=== PATIENT | female | born 1980 | race African-American/Black ===

== ENCOUNTER 2018-01-04 12:17 | Inpatient (IN) | payer OTHER ==
[2018-01-04] VITALS (86 sets, daily range): BP systolic 123–143; BP diastolic 70–88; PULSE 79–153; TEMP 98.9; O2SAT 98–100
[~2018-01-04] VITALS: Ht 172.7 cm; Wt 83.4 kg
[2018-01-04] MEDS ORDERED: RT SALINE 0.9% N3 ML IH (13:29)
[2018-01-04] MEDS ORDERED: MONONESSA 35 MC1 TA1 PO (13:30)
[2018-01-04] MEDS ORDERED: ZANTAC 150MG T150 MG PO (13:30)
[2018-01-04] MEDS ORDERED: PROAIR HFA0.09 MG/AC IH (13:31)
[2018-01-04] MEDS ORDERED: ATROVENT NASAL15 ML NS (13:31)
[2018-01-04] MEDS ORDERED: SINGULAIR 110 MG/TAB PO (13:32)
[2018-01-04] MEDS ORDERED: 00186-0372-20 IH (13:32)
[2018-01-04] MEDS ORDERED: ALLEGRA 180MG180 MG PO (13:33)
[2018-01-04] MEDS ORDERED: FLONASE NASAL S16 GM NS (13:42)
[2018-01-04 14:20] LABS: ARTERIAL BLD GAS O2 SATURATION 98.5 % (92-100); ARTERIAL BLD GAS TCO2 CT 13.6; ARTERIAL BLOOD GAS BASE EXCESS -1.4 (-2-2); ARTERIAL BLOOD GAS HCO3 13.3 meq/L (22-26)
[2018-01-04 14:21] LABS: ARTERIAL BLOOD GAS PCO2 10.4 mmHg (35-45); ARTERIAL BLOOD GAS PO2 121.8 mmHg (80-100); ARTERIAL BLOOD GAS pH 7.73 (7.35-7.45)
[2018-01-04 16:39] LABS: ARTERIAL BLD GAS O2 SATURATION 98.8 % (92-100); ARTERIAL BLD GAS TCO2 CT 14.1; ARTERIAL BLOOD GAS BASE EXCESS -3.7 (-2-2); ARTERIAL BLOOD GAS HCO3 13.7 meq/L (22-26)
[2018-01-04 16:42] LABS: ARTERIAL BLOOD GAS PCO2 13.4 mmHg (35-45); ARTERIAL BLOOD GAS pH 7.63 (7.35-7.45)
[2018-01-04 21:28] LABS: ARTERIAL BLD GAS O2 SATURATION 97.9 % (92-100); ARTERIAL BLD GAS TCO2 CT 16.6; ARTERIAL BLOOD GAS BASE EXCESS -6.3 (-2-2); ARTERIAL BLOOD GAS HCO3 15.9 meq/L (22-26); ARTERIAL BLOOD GAS PCO2 24.2 mmHg (35-45); ARTERIAL BLOOD GAS PO2 108.9 mmHg (80-100); ARTERIAL BLOOD GAS pH 7.44 (7.35-7.45)
[2018-01-05] VITALS: BP 143/83; PULSE 105; TEMP 97.8
[2018-01-05 04:00] VITALS: BP 129/78; PULSE 108; TEMP 98.1
[2018-01-05 05:55] LABS: BASO % 0.1 % (0.0-2.0); GRAN # 6.7 (1.4-6.5); GRAN % 88.8 % (42.2-75.2); LYMPH # 0.7 (1.2-3.4); LYMPH % 9.4 % (20.0-51.0); MEAN CELL VOLUME 87 fl (80.0-100.0); MEAN CORPUSCULAR HEMOGLOBIN 29 pg (27.0-31.0); MEAN CORPUSCULAR HGB CONC 33 g/dl (33.0-37.0); MEAN PLATELET VOLUME 9.3 fl (7.4-10.4); MONO # 0.1 (0.1-0.6); MONO % 1.3 % (1.7-9.3); PLATELET COUNT 312 K/mm3 (130-400); RED BLOOD COUNT 4.49 M/mm3 (4.10-5.30); REDCELL DISTRIBUTION WIDTH-CV 14.2 % (11.5-14.5)
[2018-01-05 06:10] LABS: CALCIUM 8.8 mg/dL (8.4-10.2); CREATININE, serum 0.65 mg/dL (0.52-1.25); POTASSIUM 3.2 mmol/L (3.4-5.0)
[2018-01-05 06:39] LABS: ARTERIAL BLD GAS O2 SATURATION 86.8 % (92-100); ARTERIAL BLD GAS TCO2 CT 20.3; ARTERIAL BLOOD GAS BASE EXCESS -4.5 (-2-2); ARTERIAL BLOOD GAS HCO3 19.4 meq/L (22-26); ARTERIAL BLOOD GAS PCO2 32.4 mmHg (35-45); ARTERIAL BLOOD GAS PO2 50.9 mmHg (80-100); ARTERIAL BLOOD GAS pH 7.39 (7.35-7.45)
[2018-01-05 08:00] VITALS: BP 138/84; PULSE 127; TEMP 98.9
[2018-01-05 11:13] VITALS: BP 119/87; PULSE 115; TEMP 98.7
[2018-01-05 16:21] VITALS: BP 120/74; PULSE 95; TEMP 98.6
[2018-01-05 20:08] VITALS: BP 112/82; PULSE 84; TEMP 98.5
[2018-01-06 00:08] VITALS: BP 100/74; PULSE 77; TEMP 98.4
[2018-01-06 04:57] VITALS: BP 111/74; PULSE 85; TEMP 98.5
[2018-01-06 07:38] VITALS: BP 122/81; PULSE 97; TEMP 99
[2018-01-06 08:24] LABS: HEMATOCRIT 38.1 % (37.0-47.0); MEAN CELL VOLUME 89 fl (80.0-100.0); MEAN CORPUSCULAR HEMOGLOBIN 30 pg (27.0-31.0); MEAN CORPUSCULAR HGB CONC 34 g/dl (33.0-37.0); MEAN PLATELET VOLUME 9.3 fl (7.4-10.4); PLATELET COUNT 275 K/mm3 (130-400); RED BLOOD COUNT 4.28 M/mm3 (4.10-5.30); REDCELL DISTRIBUTION WIDTH-CV 14.7 % (11.5-14.5)
[2018-01-06 08:35] LABS: CALCIUM 8.9 mg/dL (8.4-10.2); CREATININE, serum 0.73 mg/dL (0.52-1.25); POTASSIUM 4.2 mmol/L (3.4-5.0)
[2018-01-06 08:36] LABS: BAND 8 % (0-10); LYMPHOCYTE 1 % (20.0-51.0); NEUTROPHILS 91 % (42.0-75.2); PLATELET ESTIMATE NORMAL (NORMAL)
[2018-01-06] MEDS ORDERED: 00186-0370-20 IH (10:41)
[2018-01-06] MEDS ORDERED: IPRATROPIUM BROM3 M1 IH (10:43)
[2018-01-06] MEDS ORDERED: PROTONIX 40MG T40 MG PO (10:46)
[2018-01-06] MEDS ORDERED: PREDNISONE20 MG PO (10:48)
[2018-01-06 11:06] VITALS: BP 118/77; PULSE 78; TEMP 99.5
== END 2018-01-06 13:44 | disposition home or self-care (01) | DRG 202 ==
LOC: MEDICAL 12:17 → ICU 14:00 → MEDICAL 01-05 16:20
PROVIDERS: Family Medicine; Internal Medicine; Internal Medicine Pulmonary Disease; Nurse Practitioner Family
PROC: 02HV33Z Insertion of Infusion Device into Superior Vena Cava, Percutaneous Approach (ICD-10-PCS; principal; 2018-01-04)
DX: J45.32 Mild persistent asthma with status asthmaticus (principal); E87.3 Alkalosis; E87.6 Hypokalemia; R00.0 Tachycardia, unspecified; T44.7X5A Adverse effect of beta-adrenoreceptor antagonists, initial encounter
CPT/HCPCS: 99223-AI; 99233-AI; C1751; J1650; J1956; J2920; J2930; J3480

== ENCOUNTER 2018-10-23 18:48 | Inpatient (IN) | payer OTHER ==
[~2018-10-23] VITALS: Ht 172.7 cm; Wt 81.4 kg
[2018-10-23] VITALS (38 sets, daily range): BP systolic 140; BP diastolic 93; PULSE 141; TEMP 98.6; O2SAT 100
[~2018-10-23 18:48] MED LIST: 00186-0370-20 IH; 00186-0372-20 IH; ALLEGRA 180MG180 MG PO; ATROVENT NASAL15 ML NS; FLONASE NASAL S16 GM NS; IPRATROPIUM BROM3 M1 IH; MONONESSA 35 MC1 TA1 PO; PREDNISONE20 MG PO; PROAIR HFA0.09 MG/AC IH; PROTONIX 40MG T40 MG PO; RT SALINE 0.9% N3 ML IH; SINGULAIR 110 MG/TAB PO; ZANTAC 150MG T150 MG PO
[2018-10-23 22:15] LABS: ARTERIAL BLD GAS O2 SATURATION 86.8 % (92-100); ARTERIAL BLD GAS TCO2 CT 13.8; ARTERIAL BLOOD GAS HCO3 13.4 meq/L (22-26); ARTERIAL BLOOD GAS pH 7.58 (7.35-7.45)
[2018-10-23 22:16] LABS: ARTERIAL BLOOD GAS PCO2 14.5 mmHg (35-45); ARTERIAL BLOOD GAS PO2 43.4 mmHg (80-100)
[2018-10-23 22:19] LABS: ALBUMIN 4.7 gm/dL (3.5-5.0); BILIRUBIN,TOTAL 0.4 mg/dL (0.0-1.0); CALCIUM 9.9 mg/dL (8.4-10.2); CREATININE, serum 0.88 (0.52-1.25); POTASSIUM 3.1 mmol/L (3.4-5.0); TOTAL PROTEIN 8.3 gm/dL (6.4-8.2)
[2018-10-23 22:22] LABS: BASO % 0.4 % (0.0-2.0); EOS % 0.5 % (0-4.0); GRAN # 5.9 (1.4-6.5); GRAN % 75.3 % (42.2-75.2); HEMOGLOBIN 13.7 g/dl (12.5-16.0); LYMPH # 1.5 (1.2-3.4); LYMPH % 19.6 % (20.0-51.0); MEAN CELL VOLUME 88 fl (80.0-100.0); MEAN CORPUSCULAR HEMOGLOBIN 29 pg (27.0-31.0); MEAN CORPUSCULAR HGB CONC 33 g/dl (33.0-37.0); MEAN PLATELET VOLUME 9.7 fl (7.4-10.4); MONO # 0.3 (0.1-0.6); MONO % 3.8 % (1.7-9.3); PLATELET COUNT 345 K/mm3 (130-400); RED BLOOD COUNT 4.67 M/mm3 (4.10-5.30); REDCELL DISTRIBUTION WIDTH-CV 13.5 % (11.5-14.5)
--- NOTE | 2018-10-23 23:11 | NUR ---
received report from cortez GRIGGS RN.
[2018-10-24] VITALS (1062 sets, daily range): BP systolic 107–132; BP diastolic 66–84; PULSE 91–119; TEMP 98–99.1; O2SAT 69–100
[2018-10-24] MEDS ORDERED: VALU-DRYL ALLER25 MG PO (01:15)
[2018-10-24] MEDS ORDERED: ZYRTEC ALLERGY10 MG PO (01:22)
[2018-10-24 05:31] LABS: HEMOGLOBIN 12.8 g/dl (12.5-16.0); MEAN CELL VOLUME 91 fl (80.0-100.0); MEAN CORPUSCULAR HEMOGLOBIN 30 pg (27.0-31.0); MEAN CORPUSCULAR HGB CONC 33 g/dl (33.0-37.0); MEAN PLATELET VOLUME 9.4 fl (7.4-10.4); PLATELET COUNT 298 K/mm3 (130-400); RED BLOOD COUNT 4.31 M/mm3 (4.10-5.30); REDCELL DISTRIBUTION WIDTH-CV 13.8 % (11.5-14.5)
[2018-10-24 05:39] LABS: CREATININE, serum 0.7 (0.52-1.25); POTASSIUM 4.3 mmol/L (3.4-5.0)
[2018-10-24 06:19] LABS: BAND 5 % (0-10); LYMPHOCYTE 2 % (20.0-51.0); NEUTROPHILS 93 % (42.0-75.2); PLATELET ESTIMATE NORMAL (NORMAL)
--- NOTE | 2018-10-24 07:27 | NUR ---
gave report to chivo crawley.
--- NOTE | 2018-10-24 07:35 | NUR ---
Bedside report received from STU Carlson.
[2018-10-24 08:02] LABS: ARTERIAL BLOOD GAS BASE EXCESS -6.4 (-2-2); ARTERIAL BLOOD GAS HCO3 16.2 meq/L (22-26); ARTERIAL BLOOD GAS PCO2 25.1 mmHg (35-45); ARTERIAL BLOOD GAS PO2 118.7 mmHg (80-100); ARTERIAL BLOOD GAS pH 7.43 (7.35-7.45)
--- NOTE | 2018-10-24 11:58 | NUR ---
Patient visiting with family at this time.
--- NOTE | 2018-10-24 14:45 | NUR ---
Report given to STU Blanchard.
--- NOTE | 2018-10-24 19:09 | NUR ---
Report given to Akua PERAZA and care resumed.
--- NOTE | 2018-10-24 19:10 | NUR ---
Bedside report received from STU Blanchard.
--- NOTE | 2018-10-24 20:00 | NUR ---
Patient awake at this time sitting in bed reading her book. Patient is alert and oriented, no signs of distress. Patient has complaints of intermittent pain rated 4/10 under her ribs from coughing. Patient would like something for the pain, will contact hospitalist. Assessment complete. Patients lungs are clear in all lópez bilaterally. HR and rhythm are regular with normal S1 and S2, patient is intermittently tachycardic, especially when moving around the room. Bowel sounds are active x4. Patient is totally independent in the room. Provided bath wipes and fresh gown per her request. Patient has no further needs at this time. Will continue to monitor. Call light within reach.
[2018-10-25] VITALS (411 sets, daily range): BP systolic 128–138; BP diastolic 79–91; PULSE 78–99; TEMP 98.3–99; O2SAT 45–100
--- NOTE | 2018-10-25 | NUR ---
Patient sleeping at this time. Patient awakens to voice and tactile stimulation. Vitals obtained and WNL. Patient has no complaints of pain, she states "that tramadol knocked me out". Patient has no further needs. Will continue to monitor. Call light within reach.
--- NOTE | 2018-10-25 04:00 | NUR ---
Patient awake and sitting up in the recliner on her computer. Vitals obtained and WNL. No signs of distress. Patient does have complaints of 4/10 pain under her ribs again and is requesting medication for it. To be provided. No further needs. Will continue to monitor. Call light within reach.
[2018-10-25 05:11] LABS: HEMATOCRIT 40.6 % (37.0-47.0); HEMOGLOBIN 13.5 g/dl (12.5-16.0); MEAN CELL VOLUME 89 fl (80.0-100.0); MEAN CORPUSCULAR HEMOGLOBIN 30 pg (27.0-31.0); MEAN CORPUSCULAR HGB CONC 33 g/dl (33.0-37.0); MEAN PLATELET VOLUME 9.4 fl (7.4-10.4); PLATELET COUNT 314 K/mm3 (130-400); RED BLOOD COUNT 4.57 M/mm3 (4.10-5.30); REDCELL DISTRIBUTION WIDTH-CV 14.3 % (11.5-14.5)
[2018-10-25 05:23] LABS: ALBUMIN 4.5 gm/dL (3.5-5.0); BILIRUBIN,TOTAL 0.3 mg/dL (0.0-1.0); CALCIUM 9.7 mg/dL (8.4-10.2); CREATININE, serum 0.79 (0.52-1.25); POTASSIUM 4.5 mmol/L (3.4-5.0); TOTAL PROTEIN 8.1 gm/dL (6.4-8.2)
[2018-10-25 05:42] LABS: LYMPHOCYTE 10 % (20.0-51.0); NEUTROPHILS 84 % (42.0-75.2); PLATELET ESTIMATE NORMAL (NORMAL)
--- NOTE | 2018-10-25 07:21 | NUR ---
Bedside report given to STU Le.
--- NOTE | 2018-10-25 07:23 | NUR ---
Bedside report received from STU robbins.
--- NOTE | 2018-10-25 08:30 | NUR ---
Assessment completed. Pt finished breakfast. Pt walking independently in room. Steady gait. Denies any SOB. Pt states breathing has improved since admission. VSS. c/o some rib pain from coughing. Refuses pain meds at this time. Discussed plan of care r/t medications this shift and doctor rounding. Pt verbalized understanding. Call light in reach.
[2018-10-25] MEDS ORDERED: PREDNISONE20 MG PO (09:46)
--- NOTE | 2018-10-25 10:32 | NUR ---
SW attended clinical rounds. Patient reports she feels like she is back to baseline and would like to discharge home. Patient lives independently at home with her . Patient's PCP is Dr Chiu at the [facility] ([facility]) and she obtains prescriptions from the pharmacy connected to her PCP's office. Patient is independent with her ADLs and does not require any DME or home health. Patient will discharge home later today.
--- NOTE | 2018-10-25 11:10 | NUR ---
Pt sleeping in bed at this time. Call light in reach.
--- NOTE | 2018-10-25 14:13 | NUR ---
discharge paperwork given to pt. Discussed discharge instructions, meds and education with pt. Pt states she has an appointment with Dr Cisse on November 05. Pt states she will be calling PCP at [facility] for follow up appointment in 1 week. Pt signed discharge paperwork. Left AC PIV dc'd, catheter intact. Pt changing in room and pt states is on his way to pick her up.
--- NOTE | 2018-10-25 14:43 | NUR ---
Pt discharged from unit. Pt left unit with to private vehicle.
== END 2018-10-25 14:43 | disposition home or self-care (01) | DRG 203 ==
LOC: COL.ER 18:48 → ICU 22:43
PROVIDERS: Emergency Medicine; Internal Medicine Critical Care Medicine; Nurse Practitioner; Student in an Organized Health Care Education/Training Program; ADMIT Hospitalist
DX: J45.42 Moderate persistent asthma with status asthmaticus (principal); E87.6 Hypokalemia; R00.0 Tachycardia, unspecified; T48.6X5A Adverse effect of antiasthmatics, initial encounter; Z88.6 Allergy status to analgesic agent; Z88.1 Allergy status to other antibiotic agents; Z88.2 Allergy status to sulfonamides; Z91.018 Allergy to other foods; J30.9 Allergic rhinitis, unspecified
CPT/HCPCS: 99222; 99222-AI; 99239; J1200; J2060; J2930; J7030; J7512

== ENCOUNTER 2019-05-03 06:28 | Inpatient (IN) | payer OTHER ==
[~2019-05-03] VITALS: Ht 175.3 cm; Wt 84.8 kg
[~2019-05-03 06:28] MED LIST changes: +VALU-DRYL ALLER25 MG PO; +ZYRTEC ALLERGY10 MG PO
[2019-05-03 08:18] VITALS: BP 127/91; PULSE 87; TEMP 98.8
[2019-05-03 11:36] VITALS: BP 127/85; PULSE 89; TEMP 98.5
[2019-05-03] MEDS ORDERED: SPIRIVA RESPIMAT4 GM IH (11:40)
[2019-05-03] MEDS ORDERED: MUCINEX 60600 MG/TA1 PO (11:46)
[2019-05-03] MEDS ORDERED: TESSALON P100 MG/CAP PO (11:47)
[2019-05-03] MEDS ORDERED: NEURONTIN300 MG/CAP PO (11:48)
[2019-05-03] MEDS ORDERED: EPIPEN 2-PAK1 MG/ML IM (11:49)
[2019-05-03 12:02] LABS: HEMATOCRIT 37.6 % (37.0-47.0); HEMOGLOBIN 12.7 g/dl (12.5-16.0); MEAN CELL VOLUME 86 fl (80.0-100.0); MEAN CORPUSCULAR HEMOGLOBIN 29 pg (27.0-31.0); MEAN CORPUSCULAR HGB CONC 34 g/dl (33.0-37.0); MEAN PLATELET VOLUME 9.1 fl (7.4-10.4); PLATELET COUNT 349 K/mm3 (130-400); RED BLOOD COUNT 4.39 M/mm3 (4.10-5.30); REDCELL DISTRIBUTION WIDTH-CV 13.4 % (11.5-14.5)
[2019-05-03 12:19] LABS: CALCIUM 9.1 mg/dL (8.4-10.2); CREATININE, serum 0.73 (0.52-1.25); POTASSIUM 3.7 mmol/L (3.4-5.0)
[2019-05-03 12:36] LABS: BAND 2 % (0-10); LYMPHOCYTE 14 % (20.0-51.0); NEUTROPHILS 84 % (42.0-75.2); PLATELET ESTIMATE NORMAL (NORMAL)
[2019-05-03 16:26] VITALS: BP 111/76; PULSE 98; TEMP 98.5
--- NOTE | 2019-05-03 17:17 | NUR ---
Pt has been sleeping peacefully during the afternoon with no s/s of distress noted. Call light remains within reach. Will continue to monitor.
--- NOTE | 2019-05-03 18:35 | NUR ---
Pt is awake and sitting in bed using her cell phone. Pt smiles when this freelance writer enters the room, denies and pain or discomfort, and presents with no s/s/ of distress. Pt has call light within reach and states that she does not need anything at this time. Will continue to monitor
[2019-05-03 19:23] VITALS: BP 135/73; PULSE 103; TEMP 97.9
--- NOTE | 2019-05-03 20:40 | NUR ---
Patient assessed at this time. Alert and oriented x 4, and able to make needs known. Denies having pain and discomfort. IV site to right wrist flushed. Site is without redness, warmth, and swelling. Denies SOB and dyspnea. Occasional dry cough. LS CTA. Respirations even and unlabored. HRR-tachycarida. Telmetry in place: sinus tachycardia. Capillary refill less than 3 seconds. Non-tenting skin turgor. BSAx4. Abdomen soft and non-tender. No edema. Voices no questions, needs, or concerns at this time. In bed watching TV. Call light is within reach.
[2019-05-04 00:26] VITALS: BP 102/56; PULSE 86; TEMP 98.2
[2019-05-04 04:55] VITALS: BP 129/81; PULSE 100; TEMP 98.1
--- NOTE | 2019-05-04 05:00 | NUR ---
Patient continues to state that she is feeling better. Denies SOB and dyspnea. Continues on IV Solu-Medrol per orders.
--- NOTE | 2019-05-04 07:08 | NUR ---
Report given to day shift nurse.
[2019-05-04 07:41] VITALS: BP 130/86; PULSE 102; TEMP 98.6
--- NOTE | 2019-05-04 09:55 | NUR ---
Pt presents in bed with eyes closed and sheet over her head. As this proposal manager writer speaks she sits up and opens her eyes. A&ox4 with her only complaint being that her IV site has some discomfort when she moves her hand or wrist. IV site appears to be clean and dry with no redness noted. Pt has had no IV fluids since yesterday AM. Flush attempted with PT c/o pain with NS flush and s/s of infiltration as evidenced by a bubble forming under he rskin proximal to the IV insertion site. Pt reports that she had a normal BM last night. No s/s of distress noted. Upon completing assessment Pt remained sitting up in bed and looking out the window. Education provided that results are still pending on the Virus Panel and Pertussis swabs performed yesterday. Pt states understanding. Will continue to monitor.
--- NOTE | 2019-05-04 10:01 | NUR ---
Initial visit; Patient thanked Twister Doffer for looking in on her and offering God's blesseings and to keep her in Twister Doffer's prayers.
--- NOTE | 2019-05-04 10:24 | NUR ---
Posting Clerk attended clinical rounds with the team and patient to discharge today. SW met with patient and patient's Ion (ph#[phone]) to discuss discharge planning. Patient lives in [place] with her . Patient receives primary care and medications from [facility]. Patient reports she uses a nebulizer at home and is independent with ADLS. Patient plans to return home upon discharge. No additional concerns at this time.
--- NOTE | 2019-05-04 10:45 | NUR ---
Pt educated on negative results from her pertussis swab. Pt states understanding.
--- NOTE | 2019-05-04 10:54 | NUR ---
Pt IV site DC'd to right wrist due to no fluids ordered, no iv injections ordered, and IV site infiltrated as previously noted and charted by this play writer on this shift. Dr Ballard notified and approved IV DC with no new start.
[2019-05-04 11:35] VITALS: BP 118/74; PULSE 103; TEMP 100.2
--- NOTE | 2019-05-04 12:55 | NUR ---
This food writer spoke to Pt after report of Pt's temp >100. Pt states that she had just finished a hot shower prior to VS being taken and rinsing her mouth out with hot water while showering. Education that a new Temp reading will be obtained. Pt states understanding.
--- NOTE | 2019-05-04 13:15 | NUR ---
Pt temperature reassessed as 98.6 oral
--- NOTE | 2019-05-04 16:25 | NUR ---
Pt educated on DC, provided all appropriate paperwork and documentation, and is waiting fo rher to arrive so she can be escorted to hospital entrance.
== END 2019-05-04 16:51 | disposition home or self-care (01) | DRG 203 ==
LOC: MEDICAL 06:28
PROVIDERS: Student in an Organized Health Care Education/Training Program; ADMIT Hospitalist
DX: J45.41 Moderate persistent asthma with (acute) exacerbation (principal); Z88.0 Allergy status to penicillin; Z88.2 Allergy status to sulfonamides; Z88.6 Allergy status to analgesic agent; Z88.8 Allergy status to other drugs, medicaments and biological substances; Z79.51 Long term (current) use of inhaled steroids; Z91.018 Allergy to other foods; Z91.048 Other nonmedicinal substance allergy status
CPT/HCPCS: 99222-AI; 99239; J2920; J7040; J7512

== ENCOUNTER 2021-01-04 10:35 | Day surgery (SDC) | payer OTHER ==
[~2021-01-04] VITALS: Ht 175.3 cm; Wt 91.0 kg
[~2021-01-04 10:35] MED LIST changes: +EPIPEN 2-PAK1 MG/ML IM; +MUCINEX 60600 MG/TA1 PO; +NEURONTIN300 MG/CAP PO; +SPIRIVA RESPIMAT4 GM IH; +TESSALON P100 MG/CAP PO
[2021-01-04] MEDS ORDERED: DUPIXENT P300 MG/2 M SQ (11:20)
[2021-01-04 11:31] VITALS: BP 120/81; PULSE 73; TEMP 97.6
[2021-01-04 12:30] VITALS: BP 125/87; PULSE 74; TEMP 98.5
[2021-01-04 12:45] VITALS: BP 122/91; PULSE 76
[2021-01-04 13:00] VITALS: BP 118/91; PULSE 63
[2021-01-04 13:15] VITALS: BP 123/83; PULSE 71
--- NOTE | 2021-01-04 13:40 | NUR ---
1230 Pt returns from endo procedure via cart and RN assist to [facility]. Pt ambulates from cart to recliner with RN assist. Monitors on and alarms set. Call light within reach. Report received from STU Cline. Pt alert and oriented. Pt requests juice, water, and applesauce. Pt denies any pain or nausea. 1240 Pt taking food and drink well. No complications noted. 1320 Discharge instructions given to pt. All questions answered to her satisfaction. Handed to pt are a thank you card and discharge information. 1340 Pt transferred out of the hospital via wheelchair and RN assist, to private vehicle driven by pt's .
[2021-01-04 14:55] VITALS: BP 115/78; PULSE 84
== END 2021-01-04 13:40 | disposition home or self-care (01) ==
LOC: SDCO 10:35
DX: K21.9 Gastro-esophageal reflux disease without esophagitis (principal); J45.909 Unspecified asthma, uncomplicated; G47.33 Obstructive sleep apnea (adult) (pediatric); F41.9 Anxiety disorder, unspecified; Z20.822 Contact with and (suspected) exposure to COVID-19; Z99.89 Dependence on other enabling machines and devices; Z79.899 Other long term (current) drug therapy
CPT/HCPCS: J7030

== ENCOUNTER → 2021-01-30 | Outpatient (CLI) | payer OTHER ==
[~2021-01-30] MED LIST changes: +DILAUDID 2MG TAB2 MG PO; +DUPIXENT P300 MG/2 M SQ
== END ==
LOC: COL.RAD 08:03
DX: R11.0 Nausea (principal)

== ENCOUNTER → 2021-02-08 | Outpatient (CLI) | payer OTHER | LOC: COL.RAD 09:42 | DX: K21.9 Gastro-esophageal reflux disease without esophagitis (principal) | CPT/HCPCS: A9537; J2805 ==

== ENCOUNTER 2021-02-20 06:36 | Day surgery (SDC) | payer OTHER ==
[~2021-02-20] VITALS: Ht 175.3 cm; Wt 92.0 kg
[~2021-02-20 06:36] MED LIST changes: -DILAUDID 2MG TAB2 MG PO
--- NOTE | 2021-02-20 06:45 | NUR ---
Patient ambulated to bay #7 without difficulty and no use of assistive devices. Medications reviewed. Vitals obtained. Consent signed. Patient used the BR to void. IV was started in her L wrist on second attempt with #20. LR is infusing without difficulty. Patient was given two warm blankets, has her non-slip socks on and call mason is within reach. Will continue to monitor.
[2021-02-20 07:36] VITALS: BP 106/72; PULSE 73; TEMP 98.3
[2021-02-20] MEDS ORDERED: DILAUDID 2MG TAB2 MG PO (09:58)
[2021-02-20 11:00] VITALS: BP 104/59; PULSE 58; TEMP 96.5
--- NOTE | 2021-02-20 11:00 | NUR ---
Patient arrived on cart from PACU. Report recieved. Patient is nauseated and has vomited once, per report. She is very sleepy but oritented to date and location. Vitals obtained. Fluids maintained at 100ml/hr. Call mason is within reach. Will continue to monitor.
[2021-02-20 11:15] VITALS: BP 120/65; PULSE 77
--- NOTE | 2021-02-20 11:15 | NUR ---
Patient is very sleepy, but can answer general questions. Patient states mild neasua, w/o vomiting. Vitals obtained. O2 applied due to destating while resting, 2L nasal cannula. Patient states using a CPAP at home. Ice water provided, however patient did not want any. Will continue to monitor. Call mason is within reach.
[2021-02-20 11:30] VITALS: BP 98/57; PULSE 67
--- NOTE | 2021-02-20 11:30 | NUR ---
O2 continued while patient sleeps, lowered to 1L. Vitals obtained and are stable. Patient is still very sleepy but is more alert than before. Will continue to monitor. Call mason is within reach.
[2021-02-20 11:45] VITALS: BP 109/71; PULSE 80
--- NOTE | 2021-02-20 11:45 | NUR ---
Patient is still sleepy and drowsey, but oriented x3. Vitals obtained and are WNL. Patient states mild neasua continues. Patients called to check on her. Patient is doing well. Will continue to monitor. Call mason is within reach.
[2021-02-20 12:15] VITALS: BP 111/67; PULSE 83
--- NOTE | 2021-02-20 12:15 | NUR ---
Patient is tolerating water and sprite well, however is not ready for a snack. O2 discontinued at this time. Patient is alert and oriented x3. was called and updated about patient condition. He has his 4 year old son with him and states that they will wait for her to be ready. Will continue to monitor. Call mason is within reach.
--- NOTE | 2021-02-20 12:39 | NUR ---
Patient was given saltine crackers and seems to be tolerating them. Will continue to monitor. Call mason is within reach.
--- NOTE | 2021-02-20 13:45 | NUR ---
Patient was able to ambulate to with + RN assist. Patient voided successfully. She is tolerating her crackers well but states still feeling a little neausious. Vitals obtained. Will continue to montior and begin discharge protocol.
--- NOTE | 2021-02-20 14:07 | NUR ---
IV discontinued at this time due to discharge. Catheter tip intact. No swelling or redness noted. Pressure bandage applied. Discharge information reviewed with patient, who verbalized understanding and signed related paperwork. Patient is getting dressed to prepare for discharge. will meet us out front. He is driving the patient home.
--- NOTE | 2021-02-20 14:25 | NUR ---
Patient was escorted out via wheelchair to [facility], where her was waiting. Patient was transferred into his care at this time. Patient has her personal belongings and discharge information. Patient stated no further questions or concerns.
== END 2021-02-20 14:25 | disposition home or self-care (01) ==
LOC: SDCO 06:36
DX: K82.8 Other specified diseases of gallbladder (principal); K81.1 Chronic cholecystitis; J45.909 Unspecified asthma, uncomplicated; G47.33 Obstructive sleep apnea (adult) (pediatric); K21.9 Gastro-esophageal reflux disease without esophagitis; Z79.899 Other long term (current) drug therapy
CPT/HCPCS: J0330; J0690; J1100; J1170; J1885; J2405; J2550; J2704; J3010; J7120; Q9967